=== PATIENT | female | born 1995 | race Caucasian/White ===

== ENCOUNTER 2017-05-26 18:21 | Emergency (ER) | payer BC, OTHER ==
[2017-05-26] MEDS ORDERED: Sodium Chloride 0.9% 1,000 ML IV ONE (18:52)
[2017-05-26] MEDS ORDERED: diphenhydrAMINE 50 MG/ML SDV IVPUSH ONE (19:05)
--- NOTE | 2017-05-26 19:34 | EDM.PDOC ---
ED HPI GENERAL MEDICAL PROBLEM - General Chief Complaint: Diabetic Complaint Stated Complaint: PT HAS HIGH SUGAR LEVEL Time Seen by Provider: 05/26/17 19:00 Source of Information: Reports: Patient, Family History Limitations: Reports: No Limitations - History of Present Illness INITIAL COMMENTS - FREE TEXT/NARRATIVE: HISTORY AND PHYSICAL: History of present illness: Patient is a 21-year-old female who presents to the emergency room today with complaints of high blood sugar. Patient is a type I diabetic and does her insulin on a sliding scale. Patient reports she has become concerned because she has had a few readings of glucose reading greater than 400. This morning she states she felt as it "I was walking through sludge" and became dizzy which triggered her anxiety. Since that time she's had nausea and just generally not feeling well. Reports her diet has been normal, no vomiting or abdominal pain. Has had a few loose stools over the last 24 hours. Patient reports she has been communicating closely with any our diabetes coordinator at the clinic, she suggested she comes to the emergency room for evaluation. Patient recently moved here from [place] and currently does not have a primary care provider. He has been seeing Hui Silva, the diabetic coordinator at [facility], to manage her diabetes. Reports she does have a drawing box tender that she sees in [place] [address] [place]. Patient does have a history of anxiety which she does take daily medications for. Mother reports that "sometimes her anxiety gets out of control which triggers her blood sugars to be high... its a vicious cycle". Review of systems: As per history of present illness and below otherwise all systems reviewed and negative. Past medical history: As per history of present illness and as reviewed below otherwise noncontributory. Surgical history: As per history of present illness and as reviewed below otherwise noncontributory. Social history: No reported history of drug or alcohol abuse. Family history: As per history of present illness and as reviewed below otherwise noncontributory. Physical exam: Gen.: Nontoxic-appearing 21-year-old female. Able to speak in full sentences without shortness of breath. Alert and oriented. HEENT: Atraumatic, normocephalic, pupils reactive, negative for conjunctival pallor or scleral icterus, mucous membranes moist, throat clear, neck supple, nontender, trachea midline. Lungs: Clear to auscultation, breath sounds equal bilaterally, chest nontender. Breathe easy and even. Heart: S1S2, regular rate and rhythm Abdomen: Soft, nondistended, nontender. Negative for masses. Negative for costovertebral tenderness. Pelvis: Stable nontender. Genitourinary: Deferred. Rectal: Deferred. Extremities: Atraumatic, negative for cords or calf pain. Neurovascular unremarkable. Neuro: Awake, alert, oriented. Cranial nerves II through XII unremarkable. Cerebellum unremarkable. Motor and sensory unremarkable throughout. Exam nonfocal. Patient voices feelings of anxiety currently. Discussed whether or not she would like Benadryl or Ativan. Patient states she would like to try some Benadryl at this time to help alleviate some of her symptoms. Reviewed all diagnostics with patient. Patient and mother state that they feel that her symptoms are related to anxiety at this time would like to decline any additional Benadryl or Ativan. I offered to give them one tablet of meclizine and 1 tablet of Zofran that they can take later this evening if needed. Patient states she will follow up with Argelia Ruby tomorrow she sees for her anxiety. Patient is agreeable to plan of care and denies any further questions. Diagnostics: CBC, CMP, serum ketones, UA Therapeutics: IV fluid, Benadryl Impression: Hyperglycemia, anxiety Definitive disposition and diagnosis as appropriate pending reevaluation and review of above. Onset: Today - Related Data Allergies Allergy/AdvReac Type Severity Reaction Status Date / Time cefaclor [From [facility]] Allergy Hives Verified 05/26/17 18:40 Home Meds: Home Meds Cetirizine [ZyrTEC] 10 mg DAILY 05/26/17 [History] Desvenlafaxine Succinate [Pristiq] 25 mg DAILY 05/26/17 [History] Insulin Aspart [NovoLOG] 05/26/17 [History] Insulin Degludec [Tresiba Flextouch U-100] 22 units DAILY 05/26/17 [History] busPIRone [Buspar] 10 mg BID 05/26/17 [History] diphenhydrAMINE HCl [Benadryl] 25 mg BEDTIME PRN 05/26/17 [History] Past Medical History Cardiovascular History: Reports: None Respiratory History: Reports: None Gastrointestinal History: Reports: None Genitourinary History: Reports: None SHINGLE GRADER History: Reports: None Musculoskeletal History: Reports: None Neurological History: Reports: None Psychiatric History: Reports: Anxiety, Depression Endocrine/Metabolic History: Reports: Diabetes, Type I Hematologic History: Reports: None Dermatologic History: Reports: None - Past Surgical History HEENT Surgical History: Reports: Other (See Below) Other HEENT Surgeries/Procedures: wisdom teeth removed Social & Family History - Family History Family Medical History: Noncontributory - Tobacco Use Smoking Status *Q: Never Smoker - Caffeine Use Caffeine Use: Reports: None - Recreational Drug Use Recreational Drug Use: No ED ROS GENERAL - Review of Systems Review Of Systems: ROS reveals no pertinent complaints other than HPI. ED EXAM GENERAL NO PERIP PULSE - Physical Exam Exam: See Below (See dictation) Course - Vital Signs Last Recorded V/S: Last Vital Signs Temp 37.0 C 05/26/17 18:36 Pulse 114 H 05/26/17 18:36 Resp 18 05/26/17 18:36 BP 129/81 05/26/17 18:36 Pulse Ox 100 05/26/17 18:36 - Orders/Labs/Meds Orders: Active Orders 24 hr Category Date Time Status Meclizine [Antivert] Med 05/26/17 20:24 Once 25 mg PO ONETIME ONE Ondansetron [Zofran ODT] Med 05/26/17 20:24 Once 4 mg PO ONETIME ONE Medication Orders Meclizine HCl (Antivert) 25 mg PO ONETIME ONE Stop: 05/26/17 20:25 Ondansetron HCl (Zofran Odt) 4 mg PO ONETIME ONE Stop: 05/26/17 20:25 Labs: Laboratory Tests 05/26/17 05/26/17 05/26/17 Range/Units 18:36 19:00 19:05 WBC 9.37 (4.0-11.0) K/uL RBC 4.84 (4.30-5.90) M/uL Hgb 14.8 (12.0-16.0) g/dL Hct 42.1 (36.0-46.0) % MCV 87.0 (80.0-98.0) fL MCH 30.6 (27.0-32.0) pg MCHC 35.2 (31.0-37.0) g/dL RDW Std Deviation 39.1 (28.0-62.0) fl RDW Coeff of Reji 12 (11.0-15.0) % Plt Count 308 (150-400) K/uL MPV 9.60 (7.40-12.00) fL Neut % (Auto) 66.7 (48.0-80.0) % Lymph % (Auto) 26.0 (16.0-40.0) % Pickett % (Auto) 7.2 (0.0-15.0) % Eos % (Auto) 0.0 (0.0-7.0) % Baso % (Auto) 0.1 (0.0-1.5) % Neut # (Auto) 6.3 H (1.4-5.7) K/uL Lymph # (Auto) 2.4 (0.6-2.4) K/uL Pickett # (Auto) 0.7 (0.0-0.8) K/uL Eos # (Auto) 0.0 (0.0-0.7) K/uL Baso # (Auto) 0.0 (0.0-0.1) K/uL Nucleated RBC % 0.0 /100WBC Nucleated RBCs # 0 K/uL Sodium (136-146) mmol/L Potassium (3.5-5.1) mmol/L Chloride (98-110) mmol/L Carbon Dioxide (21-31) mmol/L BUN (6.0-23.0) mg/dL Creatinine (0.6-1.5) mg/dL Est Cr Clr Drug Dosing Estimated GFR (MDRD) ml/min Glucose (60-110) mg/dL POC Glucose 191 H (60-110) mg/dL Calcium (8.8-10.8) mg/dL Total Bilirubin (0.1-1.5) mg/dL AST (5-40) IU/L ALT (8-54) IU/L Alkaline Phosphatase (40-150) Total Protein (6.0-8.0) g/dL Albumin (3.5-5.0) g/dL Globulin (2.0-3.5) g/dL Albumin/Globulin Ratio (1.3-2.8) Urine Color YELLOW Urine Appearance CLEAR Urine pH 5.5 (5.0-8.0) Ur Specific [place] <= 1.005 (1.001-1.035) Urine Protein NEGATIVE (NEGATIVE) mg/dL Urine Glucose (UA) NEGATIVE (NEGATIVE) mg/dL Urine Ketones NEGATIVE (NEGATIVE) mg/dL Urine Occult Blood MODERATE (NEGATIVE) Urine Nitrite NEGATIVE (NEGATIVE) Urine Bilirubin NEGATIVE (NEGATIVE) Urine Urobilinogen 0.2 (<2.0) EU/dL Ur Leukocyte Esterase NEGATIVE (NEGATIVE) Urine RBC 0-1 (0-2/HPF) Urine WBC NONE SEEN (0-5/HPF) Ur Epithelial Cells RARE (NONE-FEW) Urine Bacteria RARE (NEGATIVE) Ketones (NEG) 05/26/17 05/26/17 Range/Units 19:05 19:05 WBC (4.0-11.0) K/uL RBC (4.30-5.90) M/uL Hgb (12.0-16.0) g/dL Hct (36.0-46.0) % MCV (80.0-98.0) fL MCH (27.0-32.0) pg MCHC (31.0-37.0) g/dL RDW Std Deviation (28.0-62.0) fl RDW Coeff of Reji (11.0-15.0) % Plt Count (150-400) K/uL MPV (7.40-12.00) fL Neut % (Auto) (48.0-80.0) % Lymph % (Auto) (16.0-40.0) % Pickett % (Auto) (0.0-15.0) % Eos % (Auto) (0.0-7.0) % Baso % (Auto) (0.0-1.5) % Neut # (Auto) (1.4-5.7) K/uL Lymph # (Auto) (0.6-2.4) K/uL Pickett # (Auto) (0.0-0.8) K/uL Eos # (Auto) (0.0-0.7) K/uL Baso # (Auto) (0.0-0.1) K/uL Nucleated RBC % /100WBC Nucleated RBCs # K/uL Sodium 137 (136-146) mmol/L Potassium 3.5 (3.5-5.1) mmol/L Chloride 105 (98-110) mmol/L Carbon Dioxide 21 (21-31) mmol/L BUN 7 (6.0-23.0) mg/dL Creatinine 0.7 (0.6-1.5) mg/dL Est Cr Clr Drug Dosing TNP Estimated GFR (MDRD) > 60.0 ml/min Glucose 250 H (60-110) mg/dL POC Glucose (60-110) mg/dL Calcium 9.8 (8.8-10.8) mg/dL Total Bilirubin 0.5 (0.1-1.5) mg/dL AST 13 (5-40) IU/L ALT 13 (8-54) IU/L Alkaline Phosphatase 74 (40-150) Total Protein 8.1 H (6.0-8.0) g/dL Albumin 4.5 (3.5-5.0) g/dL Globulin 3.6 H (2.0-3.5) g/dL Albumin/Globulin Ratio 1.3 (1.3-2.8) Urine Color Urine Appearance Urine pH (5.0-8.0) Ur Specific Durham (1.001-1.035) Urine Protein (NEGATIVE) mg/dL Urine Glucose (UA) (NEGATIVE) mg/dL Urine Ketones (NEGATIVE) mg/dL Urine Occult Blood (NEGATIVE) Urine Nitrite (NEGATIVE) Urine Bilirubin (NEGATIVE) Urine Urobilinogen (<2.0) EU/dL Ur Leukocyte Esterase (NEGATIVE) Urine RBC (0-2/HPF) Urine WBC (0-5/HPF) Ur Epithelial Cells (NONE-FEW) Urine Bacteria (NEGATIVE) Ketones NEGATIVE (NEG) Meds: Medications Generic Name Dose Route Start Last Admin Trade Name Freq PRN Reason Stop Dose Admin Meclizine HCl 25 mg 05/26/17 20:24 Antivert PO 05/26/17 20:25 ONETIME ONE Ondansetron HCl 4 mg 05/26/17 20:24 Zofran Odt PO 05/26/17 20:25 ONETIME ONE Discontinued Medications Generic Name Dose Route Start Last Admin Trade Name Freq PRN Reason Stop Dose Admin Diphenhydramine HCl 25 mg 05/26/17 19:05 05/26/17 19:23 Benadryl IVPUSH 05/26/17 19:06 25 mg ONETIME ONE Administration Sodium Chloride 1,000 mls @ 999 mls/hr 05/26/17 18:52 05/26/17 19:05 Normal Saline IV 05/26/17 19:52 999 mls/hr STAT ONE Administration Departure - Departure Time of Disposition: 20:27 Disposition: Home, Self-Care 01 Condition: Good Clinical Impression: Hyperglycemia, Anxiety - Discharge Information Referrals: PCP,None [Primary Care Provider] - Forms: ED Department Discharge Additional Instructions: The following information is given to patients seen in the emergency department who are being discharged to home. This information is to outline your options for follow-up care. We provide all patients seen in our emergency department with a follow-up referral. The need for follow-up, as well as the timing and circumstances, are variable depending upon the specifics of your emergency department visit. If you don't have a primary care physician on staff, we will provide you with a referral. We always advise you to contact your personal physician following an emergency department visit to inform them of the circumstance of the visit and for follow-up with them and/or the need for any referrals to a consulting specialist. The emergency department will also refer you to a specialist when appropriate. This referral assures that you have the opportunity for followup care with a specialist. All of these measure are taken in an effort to provide you with optimal care, which includes your followup. Under all circumstances we always encourage you to contact your private physician who remains a resource for coordinating your care. When calling for followup care, please make the office aware that this follow-up is from your recent emergency room visit. If for any reason you are refused follow-up, please contact the [facility] emergency department at and asked to speak to the emergency department charge nurse. [facility] [address] [place] [id number] 1. An tablet of meclizine has been given to you to take this evening if he continued to have dizziness. Zofran ODT may be taken for nausea, this will dissolve in her mouth and you do not have to worry about vomiting. 2. Please keep in contact with any anesthesiology faculty and Argelia Ruby as we discussed 3. Follow-up with your primary care provider in the next 1-2 days. As discussed - My Orders Last 24 Hours: My Active Orders 05/26/17 20:24 Meclizine [Antivert] 25 mg PO ONETIME ONE Ondansetron [Zofran ODT] 4 mg PO ONETIME ONE - Assessment/Plan Last 24 Hours: My Active Orders 05/26/17 20:24 Meclizine [Antivert] 25 mg PO ONETIME ONE Ondansetron [Zofran ODT] 4 mg PO ONETIME ONE
[2017-05-26 20:07] LABS: CHLORIDE,CL 105 mmol/L (98-110); SODIUM,NA 137 mmol/L (136-146)
[2017-05-26] MEDS ORDERED: Meclizine 25 MG Tab PO ONE (20:24)
[2017-05-26] MEDS ORDERED: Ondansetron 4 MG Tab.DIS PO ONE (20:24)
[2017-05-26 20:46] VITALS: BP 121/77
== END 2017-05-26 20:41 | disposition home or self-care (01) ==
LOC: MW.ED 18:21
DX: E10.65 Type 1 diabetes mellitus with hyperglycemia (principal); F41.9 Anxiety disorder, unspecified; F32.9 Major depressive disorder, single episode, unspecified; Z79.4 Long term (current) use of insulin; Z88.1 Allergy status to other antibiotic agents; Z79.899 Other long term (current) drug therapy
CPT/HCPCS: 36415; 80053; 81001; 82009; 82962; 85025; 96361; 96374; 99283; A9270; J1200; J7040

== ENCOUNTER 2018-01-21 18:42 | Emergency (ER) | payer BC, OTHER ==
[2018-01-21 19:00] VITALS: BP 151/86
[2018-01-21] MEDS ORDERED: Sodium Chloride 0.9% 1,000 ML IV ONE (19:13)
[2018-01-21] MEDS ORDERED: Ondansetron 4 MG/2 ML SDV IVPUSH ONE (19:13)
[2018-01-21] MEDS ORDERED: Sodium Chloride 0.9% 10 ML Syringe FLUSH PRN (19:13)
[2018-01-21] MEDS ORDERED: Sodium Chloride 0.9% 2.5 ML Syringe FLUSH PRN (19:13)
--- NOTE | 2018-01-21 19:18 | EDM.PDOC ---
ED HPI GENERAL MEDICAL PROBLEM - General Chief Complaint: Diabetic Complaint Stated Complaint: DIABETIC/HIGH BLOOD SUGAR LEVEL Time Seen by Provider: 01/21/18 19:06 - History of Present Illness INITIAL COMMENTS - FREE TEXT/NARRATIVE: HISTORY AND PHYSICAL: History of present illness: The patient is a 22-year-old insulin-dependent diabetic since the age of 9 who doses herself with insulin and states she has a lot of anxiety about her diabetes and presents today with complaints of several weeks of her blood sugar being variable and higher than she would like as well as starting to spill some ketones in the urine today. The patient says that she shoots for fasting blood sugar of around 160 and has been running about 200 the last several days and she is concerned. When her blood sugar is elevated she checks her urine ketones and she had trace ketones this morning and moderate this afternoon and she is worried she came for evaluation. The patient follows with Dr. Roy, an separating machine operator in [place], as well as one of our local providers in the clinic and sees our nurses educator. She says over the last month or so she has been seeing the nurses educator every week because of her concerns about her diabetes. Today she says she has had some nausea without vomiting and feels weak and drained and slightly lightheaded which is not passed out or blacked out and has no focal weakness or neurosensory changes. She has no head neck or back pain no flank pain and no dysuria but she has had polyuria and polydipsia. She has no abdominal pain chest pain or shortness of breath. Patient denies as she is not sexually and has never been sexually active. The patient tells me she doses herself with insulin and in the past has had an insulin pump but she had a lot of "anxiety around it" so she has chosen not to use it. Review of systems: As per history of present illness and below otherwise all systems reviewed and negative. Past medical history: As per history of present illness and as reviewed below otherwise noncontributory. Surgical history: As per history of present illness and as reviewed below otherwise noncontributory. Social history: No reported history of drug or alcohol abuse. Family history: As per history of present illness and as reviewed below otherwise noncontributory. Physical exam: General: Well-developed well-nourished female who is nontoxic and vital signs are noted by me. She seems slightly anxious when discussing her diabetes and the reasons why she is here and freely admits that she worries more about this than most. HEENT: Atraumatic, normocephalic, pupils reactive, negative for conjunctival pallor or scleral icterus, mucous membranes tacky throat clear, neck supple, nontender, trachea midline. Lungs: Clear to auscultation, breath sounds equal bilaterally, chest nontender. Heart: S1S2, regular, negative for clicks, rubs, or JVD. Abdomen: Soft, nondistended, nontender. Negative for masses or hepatosplenomegaly. NABS Pelvis: Stable nontender. Genitourinary: Deferred. Rectal: Deferred. Extremities: Atraumatic, negative for cords or calf pain. Neurovascular unremarkable. Neuro: Awake, alert, oriented. Cranial nerves II through XII unremarkable. Cerebellum unremarkable. Motor and sensory unremarkable throughout. Exam nonfocal. Diagnostics: CBC CMP serum ketones UA [employer]: IV fluids, Zofran Per the computer the patient had a hemoglobin A1c done here at our hospital in June 2017 which was 9.6; today's number is elevated from that at 10.1. All testing results were discussed with the patient and father bedside and advised her to call and see the nurses educator in the next several days as well as contacting her separating machine operator Dr. Roy as her hemoglobin A1c is trending in the upward direction. She currently has no objective criteria for admission to the hospital and I told her that I would not adjust her insulin at this point and let the nurses educator and Dr. Roy be involved with that. She feels comfortable with discharge home and feels reassured. Impression: Mild hyperglycemia with history of diabetes stable, worried well Definitive disposition and diagnosis as appropriate pending reevaluation and review of above. - Related Data Allergies Allergy/AdvReac Type Severity Reaction Status Date / Time cefaclor [From [facility]] Allergy Hives Verified 01/21/18 19:00 Home Meds: Home Meds Cetirizine [ZyrTEC] 10 mg PO DAILY 05/26/17 [History] Desvenlafaxine Succinate [Pristiq] 100 mg PO DAILY 05/26/17 [History] Insulin Aspart [NovoLOG] ASDIRECTED 05/26/17 [History] Insulin Degludec [Tresiba Flextouch U-100] 26 units SQ DAILY 05/26/17 [History] busPIRone [Buspar] 10 mg PO BID 05/26/17 [History] diphenhydrAMINE HCl [Benadryl] 25 mg PO BEDTIME PRN 05/26/17 [History] Cholecalciferol (Vitamin D3) [Vitamin D] 0 mcg PO DAILY 01/21/18 [History] Past Medical History HEENT History: Reports: Impaired Vision Cardiovascular History: Reports: None Respiratory History: Reports: None Gastrointestinal History: Reports: None Genitourinary History: Reports: None 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: None Musculoskeletal History: Reports: None Neurological History: Reports: None Psychiatric History: Reports: Anxiety, Depression Endocrine/Metabolic History: Reports: Diabetes, Type I Hematologic History: Reports: None Dermatologic History: Reports: None - Past Surgical History HEENT Surgical History: Reports: Oral Surgery, Other (See Below) Other HEENT Surgeries/Procedures: wisdom teeth removed Social & Family History - Family History Family Medical History: Noncontributory - Tobacco Use Smoking Status *Q: Never Smoker - Caffeine Use Caffeine Use: Reports: None - Recreational Drug Use Recreational Drug Use: No ED ROS GENERAL - Review of Systems Review Of Systems: ROS reveals no pertinent complaints other than HPI. ED EXAM GENERAL NO PERIP PULSE - Physical Exam Exam: See Below (See dictation) Course - Vital Signs Last Recorded V/S: Last Vital Signs Temp 36.9 C 01/21/18 18:42 Pulse 121 H 01/21/18 18:42 Resp 18 01/21/18 18:42 BP 151/86 H 01/21/18 18:42 Pulse Ox 97 01/21/18 18:42 - Orders/Labs/Meds Orders: Active Orders 24 hr Category Date Time Status Blood Glucose Check, Bedside [RC] ONETIME Care 01/21/18 19:28 Active UA W/MICROSCOPIC [URIN] Stat Lab 01/21/18 19:20 Ordered Sodium Chloride 0.9% [Normal Saline] 1,000 ml Med 01/21/18 19:13 Active IV STAT Sodium Chloride 0.9% [Saline Flush] Med 01/21/18 19:13 Active 10 ml FLUSH ASDIRECTED PRN Sodium Chloride 0.9% [Saline Flush] Med 01/21/18 19:13 Active 2.5 ml FLUSH ASDIRECTED PRN Saline Lock Insert [OM.PC] Stat Oth 01/21/18 19:13 Ordered Medication Orders Sodium Chloride (Normal Saline) 1,000 mls @ 999 mls/hr IV STAT ONE Stop: 01/21/18 20:13 Last Admin: 01/21/18 19:40 Dose: 999 mls/hr Sodium Chloride (Saline Flush) 10 ml FLUSH ASDIRECTED PRN PRN Reason: Keep Vein Open Sodium Chloride (Saline Flush) 2.5 ml FLUSH ASDIRECTED PRN PRN Reason: Keep Vein Open Labs: Laboratory Tests 01/21/18 01/21/18 01/21/18 Range/Units 19:20 19:27 19:27 WBC 10.67 (4.0-11.0) K/uL RBC 4.91 (4.30-5.90) M/uL Hgb 14.6 (12.0-16.0) g/dL Hct 42.5 (36.0-46.0) % MCV 86.6 (80.0-98.0) fL MCH 29.7 (27.0-32.0) pg MCHC 34.4 (31.0-37.0) g/dL RDW Std Deviation 38.4 (28.0-62.0) fl RDW Coeff of Reji 12 (11.0-15.0) % Plt Count 294 (150-400) K/uL MPV 9.70 (7.40-12.00) fL Neut % (Auto) 73.6 (48.0-80.0) % Lymph % (Auto) 21.9 (16.0-40.0) % [place] % (Auto) 4.4 (0.0-15.0) % Eos % (Auto) 0.0 (0.0-7.0) % Baso % (Auto) 0.1 (0.0-1.5) % Neut # (Auto) 7.9 H (1.4-5.7) K/uL Lymph # (Auto) 2.3 (0.6-2.4) K/uL [place] # (Auto) 0.5 (0.0-0.8) K/uL Eos # (Auto) 0.0 (0.0-0.7) K/uL Baso # (Auto) 0.0 (0.0-0.1) K/uL Nucleated RBC % 0.0 /100WBC Nucleated RBCs # 0 K/uL Sodium 137 (136-145) mmol/L Potassium 3.5 (3.5-5.1) mmol/L Chloride 101 (98-107) mmol/L Carbon Dioxide 23.9 (21.0-32.0) mmol/L BUN 10 (7.0-18.0) mg/dL Creatinine 0.7 (0.6-1.0) mg/dL Est Cr Clr Drug Dosing 106.05 mL/min Estimated GFR (MDRD) > 60.0 ml/min Glucose 230 H (74-106) mg/dL POC Glucose (60-110) mg/dL Hemoglobin A1c (4.5-6.2) % Calcium 9.9 (8.5-10.1) mg/dL Total Bilirubin 0.5 (0.2-1.0) mg/dL AST 13 L (15-37) IU/L ALT 17 (14-63) IU/L Alkaline Phosphatase 63 (46-116) U/L Total Protein 7.9 (6.4-8.2) g/dL Albumin 4.2 (3.4-5.0) g/dL Globulin 3.7 H (2.0-3.5) g/dL Albumin/Globulin Ratio 1.1 L (1.3-2.8) Urine Color YELLOW Urine Appearance CLEAR Urine pH 6.0 (5.0-8.0) Ur Specific [place] <= 1.005 (1.001-1.035) Urine Protein NEGATIVE (NEGATIVE) mg/dL Urine Glucose (UA) 250 H (NEGATIVE) mg/dL Urine Ketones 15 H (NEGATIVE) mg/dL Urine Occult Blood NEGATIVE (NEGATIVE) Urine Nitrite NEGATIVE (NEGATIVE) Urine Bilirubin NEGATIVE (NEGATIVE) Urine Urobilinogen 0.2 (<2.0) EU/dL Ur Leukocyte Esterase NEGATIVE (NEGATIVE) Urine RBC 0-1 (0-2/HPF) Urine WBC 0-1 (0-5/HPF) Ur Epithelial Cells RARE (NONE-FEW) Urine Bacteria RARE (NEGATIVE) Ketones (NEG) 01/21/18 01/21/18 01/21/18 Range/Units 19:27 19:27 19:31 WBC (4.0-11.0) K/uL RBC (4.30-5.90) M/uL Hgb (12.0-16.0) g/dL Hct (36.0-46.0) % MCV (80.0-98.0) fL MCH (27.0-32.0) pg MCHC (31.0-37.0) g/dL RDW Std Deviation (28.0-62.0) fl RDW Coeff of Reji (11.0-15.0) % Plt Count (150-400) K/uL MPV (7.40-12.00) fL Neut % (Auto) (48.0-80.0) % Lymph % (Auto) (16.0-40.0) % [place] % (Auto) (0.0-15.0) % Eos % (Auto) (0.0-7.0) % Baso % (Auto) (0.0-1.5) % Neut # (Auto) (1.4-5.7) K/uL Lymph # (Auto) (0.6-2.4) K/uL [place] # (Auto) (0.0-0.8) K/uL Eos # (Auto) (0.0-0.7) K/uL Baso # (Auto) (0.0-0.1) K/uL Nucleated RBC % /100WBC Nucleated RBCs # K/uL Sodium (136-145) mmol/L Potassium (3.5-5.1) mmol/L Chloride (98-107) mmol/L Carbon Dioxide (21.0-32.0) mmol/L BUN (7.0-18.0) mg/dL Creatinine (0.6-1.0) mg/dL Est Cr Clr Drug Dosing mL/min Estimated GFR (MDRD) ml/min Glucose (74-106) mg/dL POC Glucose 229 H (60-110) mg/dL Hemoglobin A1c 10.1 H (4.5-6.2) % Calcium (8.5-10.1) mg/dL Total Bilirubin (0.2-1.0) mg/dL AST (15-37) IU/L ALT (14-63) IU/L Alkaline Phosphatase (46-116) U/L Total Protein (6.4-8.2) g/dL Albumin (3.4-5.0) g/dL Globulin (2.0-3.5) g/dL Albumin/Globulin Ratio (1.3-2.8) Urine Color Urine Appearance Urine pH (5.0-8.0) Ur Specific [place] (1.001-1.035) Urine Protein (NEGATIVE) mg/dL Urine Glucose (UA) (NEGATIVE) mg/dL Urine Ketones (NEGATIVE) mg/dL Urine Occult Blood (NEGATIVE) Urine Nitrite (NEGATIVE) Urine Bilirubin (NEGATIVE) Urine Urobilinogen (<2.0) EU/dL Ur Leukocyte Esterase (NEGATIVE) Urine RBC (0-2/HPF) Urine WBC (0-5/HPF) Ur Epithelial Cells (NONE-FEW) Urine Bacteria (NEGATIVE) Ketones NEGATIVE (NEG) Meds: Medications Generic Name Dose Route Start Last Admin Trade Name Freq PRN Reason Stop Dose Admin Sodium Chloride 1,000 mls @ 999 mls/hr 01/21/18 19:13 01/21/18 19:40 Normal Saline IV 01/21/18 20:13 999 mls/hr STAT ONE Administration Sodium Chloride 10 ml 01/21/18 19:13 Saline Flush FLUSH ASDIRECTED PRN Keep Vein Open Sodium Chloride 2.5 ml 01/21/18 19:13 Saline Flush FLUSH ASDIRECTED PRN Keep Vein Open Discontinued Medications Generic Name Dose Route Start Last Admin Trade Name Freq PRN Reason Stop Dose Admin Ondansetron HCl 4 mg 01/21/18 19:13 01/21/18 19:38 Zofran IVPUSH 01/21/18 19:14 4 mg ONETIME ONE Administration Departure - Departure Time of Disposition: 20:10 Disposition: Home, Self-Care 01 Condition: Good Clinical Impression: Hyperglycemia, Physically well but worried - Discharge Information Referrals: Sarah Barrera PA [Primary Care Provider] - Forms: ED Department Discharge Additional Instructions: The following information is given to patients seen in the emergency department who are being discharged to home. This information is to outline your options for follow-up care. We provide all patients seen in our emergency department with a follow-up referral. The need for follow-up, as well as the timing and circumstances, are variable depending upon the specifics of your emergency department visit. If you don't have a primary care physician on staff, we will provide you with a referral. We always advise you to contact your personal physician following an emergency department visit to inform them of the circumstance of the visit and for follow-up with them and/or the need for any referrals to a consulting specialist. The emergency department will also refer you to a specialist when appropriate. This referral assures that you have the opportunity for followup care with a specialist. All of these measure are taken in an effort to provide you with optimal care, which includes your followup. Under all circumstances we always encourage you to contact your private physician who remains a resource for coordinating your care. When calling for followup care, please make the office aware that this follow-up is from your recent emergency room visit. If for any reason you are refused follow-up, please contact the [facility] emergency department at and ask to speak to the emergency department charge nurse. [facility]- [place] [address] Please push hydration and contact the nurses educator tomorrow morning for follow-up regarding today's labs and adjustments in your insulin. Please also contact Dr. Roy in [place] for follow-up appointment to reevaluate your overall diabetic management plan. Return to ER as needed and as discussed - My Orders Last 24 Hours: My Active Orders 01/21/18 19:13 Sodium Chloride 0.9% [Normal Saline] 1,000 ml IV STAT Sodium Chloride 0.9% [Saline Flush] 10 ml FLUSH ASDIRECTED PRN Sodium Chloride 0.9% [Saline Flush] 2.5 ml FLUSH ASDIRECTED PRN Saline Lock Insert [OM.PC] Stat 01/21/18 19:20 UA W/MICROSCOPIC [URIN] Stat 01/21/18 19:28 Blood Glucose Check, Bedside [RC] ONETIME - Assessment/Plan Last 24 Hours: My Active Orders 01/21/18 19:13 Sodium Chloride 0.9% [Normal Saline] 1,000 ml IV STAT Sodium Chloride 0.9% [Saline Flush] 10 ml FLUSH ASDIRECTED PRN Sodium Chloride 0.9% [Saline Flush] 2.5 ml FLUSH ASDIRECTED PRN Saline Lock Insert [OM.PC] Stat 01/21/18 19:20 UA W/MICROSCOPIC [URIN] Stat 01/21/18 19:28 Blood Glucose Check, Bedside [] ONETIME
[2018-01-21 19:59] LABS: CHLORIDE,CL 101 mmol/L (98-107); SODIUM,NA 137 mmol/L (136-145)
== END 2018-01-21 20:31 | disposition home or self-care (01) ==
LOC: MW.ED 18:42
DX: E10.65 Type 1 diabetes mellitus with hyperglycemia (principal); Z88.1 Allergy status to other antibiotic agents; Z79.899 Other long term (current) drug therapy
CPT/HCPCS: 36415; 80053; 81001; 82009; 82962; 83036; 85025; 96361; 96374; 99283; J2405; J7040